=== PATIENT | male | born 1985 | race Caucasian/White ===

== ENCOUNTER 2022-09-24 01:25 | Emergency (ER) | payer SELFPAY ==
[~2022-09-24] VITALS: Ht 182.9 cm; Wt 125.6 kg
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
--- NOTE | 2022-09-24 02:40 | NUR ---
PT WENT FOR CT HEAD WO CONTRAST, FACIAL WO CONTRAST, CT CERVICAL SPINE WO CONTRAST.
--- NOTE | 2022-09-24 02:41 | NUR ---
PT BEING TRANSPORTED TO CT VIA [facility]
--- NOTE | 2022-09-24 02:41 | NUR ---
PT BEING TRANSPORTED TO CT
--- NOTE | 2022-09-24 04:43 | NUR ---
PT'S FRIEND @BEDSIDE TO PICKUP PT. PATIENT'S FRIEND TRANSLATED FOR RISK AND BENEFITS OF NOT STAYING WITHOUT HAVING THE CT SCAN RESULT WHICH MAY CAUSE BRAIN BLEEDING AND . PT ACKNOWLEDGED AND UNDERSTOOD BUT STILL DECIDED TO GO HOME.
--- NOTE | 2022-09-24 04:44 | NUR ---
Patient does not wish to proceed with medical care recommended by Dr. Lincoln. Patient given information related to possible complications, up to and including , which could occur as a result of leaving the hospital at this time. Patient verbalizes understanding of risks involved due to leaving against medical advice. Patient has signed AMA form.
[2022-09-24 05:30] VITALS: BP 104/69
== END 2022-09-24 04:46 | disposition left against medical advice (07) ==
LOC: ER 01:27
DX: R51.9 Headache, unspecified (principal); M54.9 Dorsalgia, unspecified; F17.200 Nicotine dependence, unspecified, uncomplicated
CPT/HCPCS: 70450-TC; 70486-TC; 72125-TC